=== PATIENT | female | born 1950 | race Caucasian/White ===

== ENCOUNTER → 2020-03-12 09:29 | Outpatient (REF) | payer OTHER, SELFPAY ==
[2020-03-12 09:38] LABS: Abs Immature Grans 0.03 10^3/uL (0.0-0.06); Absolute Basophil Count 0.06 10^3/uL (0.0-0.2); Absolute Lymphocyte Count 1.49 10^3/uL (1.2-3.4); Absolute Monocyte Count 0.44 10^3/uL (0.1-0.8); Absolute Neutrophil Count 4.19 10^3/uL (1.2-6.7); Basophils % 0.9; Eosinophils % 4.6; HCT 33.3 % (36.0-46.0); HGB 9.9 g/dL (11.2-15.7); Immature Grans % 0.5; Lymphocytes % 22.9; MCH 24.3 pg (27.0-33.0); MCHC 29.7 % (32.0-36.0); MCV 81.6 fL (80-95); MPV 9.7 fL (8.0-11.0); Monocytes % 6.8; Neutrophils % 64.3; Nucleated RBC 0 %; Platelet Count 294 10^3/uL (130-400); RBC 4.08 10^6/uL (3.93-5.22); RDW 17.9 % (11.7-14.6); WBC 6.51 10^3/uL (4.4-10.8)
[2020-03-12 09:46] LABS: ALT 26 U/L (14-59); AST 21 U/L (15-37); Albumin 3.4 g/dL (3.4-5.0); Alkaline Phosphatase 71 U/L (46-116); Anion Gap 11.4 mmol/L (3-11); BUN 16 mg/dL (7-18); Bilirubin, Total 0.3 mg/dL (0.2-1.0); CO2 23.6 mmol/L (21.0-32.0); CREATININE 0.91 mg/dL (0.55-1.02); Chloride 101 mmol/L (98-107); Glucose 115 mg/dL (74-106); Magnesium 1.9 mg/dL (1.8-2.4); Potassium 3.9 mmol/L (3.5-5.1); Sodium 136 mmol/L (136-145); Total Protein 7.5 g/dL (6.4-8.2)
== END ==
LOC: LBN 09:29
PROVIDERS: PCP Internal Medicine; Visit Provider Internal Medicine Medical Oncology
DX: C54.1 Malignant neoplasm of endometrium (principal)
CPT/HCPCS: 80053; 83735; 85025

== ENCOUNTER 2020-04-02 02:12 | Outpatient (RCR) | payer OTHER, SELFPAY ==
[2020-04-02] MEDS: Normal Saline Flush 10 ML SYR IVP (09:01)
[2020-04-02 09:04] LABS: Abs Immature Grans 0.13 10^3/uL (0.0-0.06); Absolute Basophil Count 0.02 10^3/uL (0.0-0.2); Absolute Lymphocyte Count 0.88 10^3/uL (1.2-3.4); Absolute Monocyte Count 0.46 10^3/uL (0.1-0.8); Absolute Neutrophil Count 7.05 10^3/uL (1.2-6.7); Basophils % 0.2; HGB 10.9 g/dL (11.2-15.7); Immature Grans % 1.5; Lymphocytes % 10.3; MCH 25.5 pg (27.0-33.0); MCHC 31.1 % (32.0-36.0); MCV 81.8 fL (80-95); MPV 9.1 fL (8.0-11.0); Monocytes % 5.4; Nucleated RBC 0 %; Platelet Count 268 10^3/uL (130-400); RBC 4.28 10^6/uL (3.93-5.22); RDW 20.5 % (11.7-14.6); WBC 8.54 10^3/uL (4.4-10.8)
[2020-04-02 09:15] LABS: ALT 34 U/L (14-59); AST 16 U/L (15-37); Albumin 3.7 g/dL (3.4-5.0); Alkaline Phosphatase 60 U/L (46-116); Anion Gap 9.3 mmol/L (3-11); BUN 26 mg/dL (7-18); Bilirubin, Total 0.3 mg/dL (0.2-1.0); CO2 24.7 mmol/L (21.0-32.0); CREATININE 0.95 mg/dL (0.55-1.02); Calcium 8.9 mg/dL (8.5-10.1); Chloride 99 mmol/L (98-107); Estimated GFR 58.68 (mL/min/1.73m2); Glucose 139 mg/dL (74-106); Magnesium 2.1 mg/dL (1.8-2.4); Potassium 4.5 mmol/L (3.5-5.1); Sodium 133 mmol/L (136-145)
[2020-04-02 09:32] LABS: Diff Comment Diff Reviewed; Neutrophils % 82.6
[2020-04-02 09:33] LABS: Anisocytosis 2+; Hypochromasia 1+; Polychromasia Present
== END 2020-04-05 23:59 | disposition home or self-care (01) ==
LOC: INF 02:12
PROVIDERS: PCP Internal Medicine; Visit Provider Internal Medicine Medical Oncology
DX: C54.1 Malignant neoplasm of endometrium (principal)
CPT/HCPCS: 36415; 80053; 83735; 85025

== ENCOUNTER 2020-04-23 01:57 | Outpatient (RCR) | payer OTHER, SELFPAY ==
[2020-04-23] MEDS: Normal Saline Flush 10 ML SYR IVP (08:18)
[2020-04-23 08:20] LABS: Abs Immature Grans 0.07 10^3/uL (0.0-0.06); Absolute Basophil Count 0.02 10^3/uL (0.0-0.2); Absolute Eosinophil Count 0.02 10^3/uL (0.0-0.7); Absolute Lymphocyte Count 1.82 10^3/uL (1.2-3.4); Absolute Monocyte Count 0.41 10^3/uL (0.1-0.8); Absolute Neutrophil Count 2.58 10^3/uL (1.2-6.7); Basophils % 0.4; Eosinophils % 0.4; HCT 34.3 % (36.0-46.0); Immature Grans % 1.4; MCH 27.2 pg (27.0-33.0); MCHC 32.1 % (32.0-36.0); MCV 84.9 fL (80-95); MPV 9.3 fL (8.0-11.0); Monocytes % 8.3; Neutrophils % 52.5; Nucleated RBC 0 %; Platelet Count 234 10^3/uL (130-400); RBC 4.04 10^6/uL (3.93-5.22); RDW-SD 71.5 fL; WBC 4.92 10^3/uL (4.4-10.8)
[2020-04-23 08:35] LABS: ALT 51 U/L (14-59); AST 21 U/L (15-37); Albumin 3.7 g/dL (3.4-5.0); Alkaline Phosphatase 56 U/L (46-116); Anion Gap 10.1 mmol/L (3-11); BUN 19 mg/dL (7-18); Bilirubin, Total 0.2 mg/dL (0.2-1.0); CO2 26.9 mmol/L (21.0-32.0); CREATININE 0.83 mg/dL (0.55-1.02); Calcium 9.4 mg/dL (8.5-10.1); Chloride 94 mmol/L (98-107); Glucose 104 mg/dL (74-106); Potassium 4.2 mmol/L (3.5-5.1); Sodium 131 mmol/L (136-145); Total Protein 7.4 g/dL (6.4-8.2)
== END 2020-05-06 23:59 | disposition home or self-care (01) ==
LOC: INF 01:57
PROVIDERS: PCP Internal Medicine; Visit Provider Internal Medicine Medical Oncology
DX: C54.1 Malignant neoplasm of endometrium (principal); Z45.2 Encounter for adjustment and management of vascular access device
CPT/HCPCS: 36415; 80053; 83735; 85025

== ENCOUNTER 2020-06-04 13:54 | Outpatient (REF) | payer OTHER, SELFPAY ==
--- OUTSIDE RECORDS SUMMARY | 2020-06-04 13:56 | XMS_ITS ---
:1950 Author Allergies Code Code System Name Reaction Severity Status Onset 1191 RxNorm Aspirin ? ? Active ? 28342 RxNorm Lisinopril Cough ? Active ? Tree and Shrub ? ? Active ? Pollen Notes: aspirin sensitive per p t packet Medications Name Status Start Date Stop Date ? ? Advil Active ? Not available albuterol sulfate 2.5 mg/3 mL (0.083 %) Active ? Not available solution for nebulization albuterol sulfate HFA 90 mcg/actuation Active ? Not available aerosol inhaler betamethasone dipropionate 0.05 % topical ointment Completed ? 12/09/2019 APPLY A THIN LAYER TO THE AFFECTED AREA(S) BY TOPICAL ROUTE ONC E DAILY codeine 10 mg-guaifenesin 100 mg/5 mL oral liquid Completed ? 12/09/2019 Take 10 mL every 4 hours by oral route as needed. Flonase Allergy Relief 50 mcg/actuation nasal spray,suspension A ctive ? Not available Zamora 1 spray every day by intranasal route. fluticasone 250 mcg-salmeterol 50 Active ? Not available mcg/dose blistr powdr for inhalation lisinopril 10 mg tablet Completed ? 11/06/19 19 Take 1 tablet every day by oral route. losartan 25 mg tablet Active ? Not availa ble Take 1 tablet every day by oral route. Mucinex Completed ? 12/09/2019 2 daily as needed Multi Vitamin Active ? Not available 1 daily prednisone 10 mg tablet Completed ? 12/09/19 20 Take 5 tablets every day by oral route for 5 days. prednisone 20 mg tablet Completed ? 12/09/19 20 Take 3 tablets every day by oral route. Tessalon Perles 100 mg capsule Completed ? 0 12/09/2019 Take 1 capsule 3 times a day by oral route as needed. Zithromax Z-Cory 250 mg tablet Completed ? TAKE 2 TABLETS (500 MG) BY ORAL ROUTE O NCE DAILY FOR 1 DAY THEN 1 TABLET (250 MG) BY ORAL ROUTE ONCE DAILY FOR 4 DAYS Problems Name Status Onset Date Source ? Hypertensive Disorder Active ? ? Exacerbation of Asthma Active ? ? Vaginal Bleeding Active ? ? Procedures Date Name Performed by ? 04/06/2009 Laparotomy Information not avai lable Notes: lysis of adhesions on her arnie l 04/06/2009 Colonoscopy Information not avai lable 04/06/1995 Appendectomy Information not avai lable 12/09/2019 US, Pelvis, Transabdominal + [facility] Radiology (Internal) Transvaginal [address] [place], [place] [id number] (Work Place) Results Lab Results Date Name Specimen Result Interpretation Description Value Range Status Address ? 12/09/2019 Pathology TISS ? Report (see ? Final No [facility]th Country Study below) Hospital L ab (Internal) : [address] 11/21/2018 CBC W/ Auto BLD - Wbc 7.9 5.0-1 Final N orth Country Diff 10*3/uL 0.0 Hospital Lab 10*3/ (Internal) : uL [address] ? ? BLD - Rbc 4.24 4.10- Final [place] [facility] try 10*6/uL 5.30 Hospital Lab 10*6/ (Internal) : uL [address] ? ? BLD - Hgb 13.1 g/dL 12.0- Final [facility] ountry 16.0 Hospital L ab g/dL (Internal) : [address] ? ? BLD - Hct 40.3 % 37.0- Final [place] [facility] try 47.0 Hospital L ab % (Internal) : [address] ? ? BLD - Mcv 95.0 fL 80.0- Final [facility] ntry 96.0 Hospital L ab fL (Internal) : [address] ? ? BLD - Mch 30.9 pg 26.0- Final [place] [facility] 32.0 Hospital L ab pg (Internal) : [address] ? ? BLD - Mchc 32.5 g/dL 31.0- Final [place] [facility]untry 35.0 Hospital L ab g/dL (Internal) : [address] ? ? BLD - Rdw 13.5 % 11.5- Final [place] [facility] try 14.5 Hospital L ab % (Internal) : [address] ? ? BLD - Plt 222 130-4 Final [place] [facility] try 10*3/uL 50 Hospital Lab 10*3/ (Internal) : u[address] ? ? BLD - Anc 5.24 ? Final [place] [facility] try 10*3/uL Hospital Lab (Internal) : [address] ? ? BLD - Neutro 66.2 % 40.0- Final [place] [facility] 75.0 Hospital L ab % (Internal) : [address], [place] ? ? BLD - Lymph 24.1 % 20.0- Final [place] [facility] try 50.0 Hospital L ab % (Internal) : [address] ? ? BLD - Converse 5.6 % 2.0-1 Final [place] [facility] try 0.0 % Hospital L ab (Internal) : [address] ? ? BLD - Eos 2.7 % 1.0-6 Final [place] [facility] try .0 % Hospital L ab (Internal) : [address] ? ? BLD - Baso 0.5 % 0.0-1 Final [place] [facility] try .0 % Hospital L ab (Internal) : [address] ? ? BLD - Ig 0.9 % 0.0-0 Final [place] [facility] try .9 % Hospital L ab (Internal) : [address] 11/21/2018 CMP, Serum S High g/r 114 mg/dL 74-10 Final [place] [facility] or Plasma 6 Hospita l Lab mg/dL (Internal) : [address] ? ? S - Bun 14 mg/dL 7-17 Final [place] [facility] mg/dL Hospital L ab (Internal) : [address] ? ? S Low Crea 0.50 0.52- Final [place] [facility] try mg/dL 1.04 Hospital L ab mg/dL (Internal) : [address] t ? ? S - Ca 9.3 mg/dL 8.4-1 Final [place] [facility]unt[facility] 0.2 Hospital L ab mg/dL (Internal) : [address] t ? ? S - Na 137 137-1 Final [facility] mmol/L 45 Hospital L ab mmol/ (Internal) : L [address] ? ? S - K 4.1 3.5-5 Final [facility] mmol/L .1 Hospital L ab mmol/ (Internal) : L [address] ? ? S - Cl 101 98-10 Final [place] [facility] try mmol/L 7 Hospital L ab mmol/ (Internal) : L [address] ? ? S - Tco2 28.0 22.0- Final [facility] mmol/L 30.0 Hospital L ab mmol/ (Internal) : L [address] ? ? S - Tp 7.3 g/dL 6.3-8 Final [place] [facility] .2 Hospital L ab g/dL (Internal) : [address] ? ? S - Alb 4.1 g/dL 3.5-5 Final [place] [facility] .0 Hospital L ab g/dL (Internal) : [address] ? ? S - Tbil 0.4 mg/dL 0.2-1 Final [facility] ountry .3 Hospital L ab mg/dL (Internal) : [address] ? ? S - Alp 74 U/L 38-12 Final [facility] 6 U/L Hospital L ab (Internal) : [address] ? ? S - Alt 52 U/L 9-52 Final [place] [facility] try (Sgpt) U/L Hospital L ab (Internal) : [address] ? ? S High Ast 39 U/L 14-36 Final [facility] (Sgot) U/L Hospital L ab (Internal) : [address] Past Encounters 12/19/2019 Endometrial Carcinoma Vinod Leon MD: [address] [place] [address], Ph. 12/09/2019 Abnormal Uterine Bleeding Vinod Leon MD: [address] [place] [address], Ph. Social History Tobacco Smoking Status Current Every Day Smoker Notes: sm okes 10 cigs per day x1 year. 2ppd 41 years. Vaccine List Vaccine Type pneumococcal, unspecified formulation 04/06/2014 Plan of Care Reminders Provider Appointments None ? ? recorded. Lab None ? ? recorded. Referral None ? ? recorded. Procedures None ? ? recorded. Surgeries None ? ? recorded. Imaging None ? ? recorded. Vitals 12/09/2019 03:10PM New Patient 30 Height Weight BMI Blood Pressure 165.1 cm 95.25 kg 34.9 kg/m2 148/82 mm[Hg] 10/22/2018 09:20AM New Patient 40 Height Weight BMI Blood Pressure 165.1 cm 102.42 kg 37.6 kg/m2 194/96 mm[Hg]
[2020-06-04 15:34] LABS: Bilirubin Negative (Negative); Blood Negative (Negative); Clarity Clear (Clear); Glucose Negative (Negative); Ketones Trace mg/dL (Negative); Leukocyte Esterase Small (Negative); Nitrite Positive (Negative); Specific Gravity 1.015 (1.005-1.025); Urobilinogen 0.2 EU/dL (Up TO 0.2)
[2020-06-04 15:48] LABS: Bacteria Many HPF (Negative); Casts Negative LPF (Negative); Crystals Negative HPF (Negative); Epithelial Cells Few HPF (Negative); Mucus Negative (Negative); Other Cells Negative (Negative); RBC Negative HPF (0-2); WBC >50 HPF (0-5)
[2020-06-04 15:49] LABS: C & S Indicated? Yes
== END 2020-06-04 13:55 | disposition home or self-care (01) ==
LOC: LBN 13:54
PROVIDERS: PCP Internal Medicine; Visit Provider Radiology Radiation Oncology
DX: R82.998 Other abnormal findings in urine (principal); M54.5 Low back pain
CPT/HCPCS: 87077; 81003; 81015; 87086; 87186

== ENCOUNTER 2020-06-21 02:00 | Outpatient (CLI) | payer OTHER, SELFPAY ==
--- NOTE | 2020-06-21 10:05 | DI.RAD_ITS ---
EXAM: XR CHEST 2V PA LATERAL CLINICAL HISTORY: PERSIST COUGH, ENDOMETRIAL CA,C54.1,R05,NEEDING INHALER. TECHNIQUE: 2D digital imaging was performed. COMPARISON: No exams were available for comparison FINDINGS: Heart size is normal. The mediastinum is not widened. No confluent infiltrates pleural effusions. Slight increased density over the right hemithorax may b e related to breast implant IMPRESSION: No acute pulmonary findings. DATA REPOSITORY: RADIATION DOSE DELIVERED:
[2020-06-21 10:27] LABS: Abs Immature Grans 0.09 10^3/uL (0.0-0.06); Absolute Basophil Count 0.04 10^3/uL (0.0-0.2); Absolute Eosinophil Count 0.02 10^3/uL (0.0-0.7); Absolute Lymphocyte Count 0.18 10^3/uL (1.2-3.4); Absolute Monocyte Count 0.46 10^3/uL (0.1-0.8); Absolute Neutrophil Count 5.19 10^3/uL (1.2-6.7); Basophils % 0.7; Eosinophils % 0.3; HCT 35.7 % (36.0-46.0); HGB 11.9 g/dL (11.2-15.7); Immature Grans % 1.5; MCH 32.3 pg (27.0-33.0); MCHC 33.3 % (32.0-36.0); MPV 10.2 fL (8.0-11.0); Monocytes % 7.7; Neutrophils % 86.8; Nucleated RBC 0 %; Platelet Count 123 10^3/uL (130-400); RBC 3.68 10^6/uL (3.93-5.22); RDW-SD 68.4 fL; WBC 5.98 10^3/uL (4.4-10.8)
[2020-06-21 10:42] LABS: ALT 51 U/L (14-59); AST 31 U/L (15-37); Albumin 3.3 g/dL (3.4-5.0); Alkaline Phosphatase 54 U/L (46-116); Anion Gap 9.7 mmol/L (3-11); BUN 7 mg/dL (7-18); Bilirubin, Total 0.4 mg/dL (0.2-1.0); CO2 27.3 mmol/L (21.0-32.0); CREATININE 0.8 mg/dL (0.55-1.02); Calcium 8.9 mg/dL (8.5-10.1); Chloride 93 mmol/L (98-107); Glucose 124 mg/dL (74-106); Magnesium 1.4 mg/dL (1.8-2.4); Potassium 4.4 mmol/L (3.5-5.1); Sodium 130 mmol/L (136-145); Total Protein 6.9 g/dL (6.4-8.2)
== END 2020-06-21 02:01 | disposition home or self-care (01) ==
PROVIDERS: PCP Internal Medicine; Visit Provider Internal Medicine Medical Oncology
DX: C54.1 Malignant neoplasm of endometrium (principal); R05 Cough
CPT/HCPCS: 36415; 80053; 71046; 83735; 85025

== ENCOUNTER 2020-07-05 09:28 | Outpatient (CLI) | payer OTHER, SELFPAY ==
[2020-07-05 10:34] LABS: Abs Immature Grans 0.05 10^3/uL (0.0-0.06); Absolute Basophil Count 0.01 10^3/uL (0.0-0.2); Absolute Eosinophil Count 0.01 10^3/uL (0.0-0.7); Absolute Lymphocyte Count 0.11 10^3/uL (1.2-3.4); Absolute Monocyte Count 0.34 10^3/uL (0.1-0.8); Basophils % 0.3; Eosinophils % 0.3; HCT 34.3 % (36.0-46.0); HGB 11.6 g/dL (11.2-15.7); Immature Grans % 1.4; MCH 33.6 pg (27.0-33.0); MCHC 33.8 % (32.0-36.0); MCV 99.4 fL (80-95); MPV 9.3 fL (8.0-11.0); Monocytes % 9.4; Neutrophils % 85.6; Nucleated RBC 0 %; Platelet Count 147 10^3/uL (130-400); RBC 3.45 10^6/uL (3.93-5.22); RDW 17.5 % (11.7-14.6); RDW-SD 64.8 fL; WBC 3.62 10^3/uL (4.4-10.8)
[2020-07-05 11:29] LABS: ALT 42 U/L (14-59); AST 24 U/L (15-37); Albumin 3.1 g/dL (3.4-5.0); Alkaline Phosphatase 57 U/L (46-116); Anion Gap 13.5 mmol/L (3-11); BUN 5 mg/dL (7-18); Bilirubin, Total 0.4 mg/dL (0.2-1.0); CO2 24.5 mmol/L (21.0-32.0); CREATININE 0.6 mg/dL (0.55-1.02); Calcium 8.9 mg/dL (8.5-10.1); Chloride 94 mmol/L (98-107); Glucose 98 mg/dL (74-106); Magnesium 1.3 mg/dL (1.8-2.4); Potassium 3.5 mmol/L (3.5-5.1); Sodium 132 mmol/L (136-145); Total Protein 6.4 g/dL (6.4-8.2)
== END 2020-07-05 09:29 | disposition home or self-care (01) ==
LOC: LBO 09:29
PROVIDERS: PCP Internal Medicine; Visit Provider Internal Medicine Medical Oncology
DX: C54.1 Malignant neoplasm of endometrium (principal)
CPT/HCPCS: 36415; 80053; 83735; 85025

== ENCOUNTER 2020-08-13 11:38 | Outpatient (CLI) | payer OTHER, SELFPAY ==
[2020-08-13 12:27] LABS: Abs Immature Grans 0.03 10^3/uL (0.0-0.06); Absolute Basophil Count 0.01 10^3/uL (0.0-0.2); Absolute Eosinophil Count 0.08 10^3/uL (0.0-0.7); Absolute Lymphocyte Count 0.37 10^3/uL (1.2-3.4); Absolute Monocyte Count 0.33 10^3/uL (0.1-0.8); Absolute Neutrophil Count 3.97 10^3/uL (1.2-6.7); Basophils % 0.2; Eosinophils % 1.7; HCT 34.5 % (36.0-46.0); HGB 11.4 g/dL (11.2-15.7); Immature Grans % 0.6; Lymphocytes % 7.7; MCH 33.6 pg (27.0-33.0); MCV 101.8 fL (80-95); MPV 9.1 fL (8.0-11.0); Monocytes % 6.9; Neutrophils % 82.9; Nucleated RBC 0 %; Platelet Count 220 10^3/uL (130-400); RBC 3.39 10^6/uL (3.93-5.22); RDW 14.6 % (11.7-14.6); RDW-SD 55.4 fL; WBC 4.79 10^3/uL (4.4-10.8)
[2020-08-13 12:40] LABS: ALT 39 U/L (14-59); AST 34 U/L (15-37); Albumin 2.9 g/dL (3.4-5.0); Alkaline Phosphatase 57 U/L (46-116); Anion Gap 10.3 mmol/L (3-11); BUN 22 mg/dL (7-18); Bilirubin, Total 0.2 mg/dL (0.2-1.0); CO2 27.7 mmol/L (21.0-32.0); CREATININE 0.9 mg/dL (0.55-1.02); Calcium 8.1 mg/dL (8.5-10.1); Chloride 103 mmol/L (98-107); Glucose 105 mg/dL (74-106); Magnesium 1.3 mg/dL (1.8-2.4); Potassium 3.4 mmol/L (3.5-5.1); Sodium 141 mmol/L (136-145); Total Protein 6.3 g/dL (6.4-8.2)
== END 2020-08-13 11:39 | disposition home or self-care (01) ==
LOC: LBO 11:39
PROVIDERS: PCP Internal Medicine; Visit Provider Internal Medicine Medical Oncology
DX: C54.1 Malignant neoplasm of endometrium (principal)
CPT/HCPCS: 36415; 80053; 83735; 85025

== ENCOUNTER 2020-10-01 02:48 | Outpatient (RCR) | payer OTHER, SELFPAY ==
[2020-09-10 10:13] LABS: Absolute Basophil Count 0.05 10^3/uL (0.0-0.2); Absolute Eosinophil Count 0.08 10^3/uL (0.0-0.7); Absolute Lymphocyte Count 0.44 10^3/uL (1.2-3.4); Absolute Monocyte Count 0.45 10^3/uL (0.1-0.8); Absolute Neutrophil Count 5.76 10^3/uL (1.2-6.7); Basophils % 0.7; Eosinophils % 1.2; HCT 34.3 % (36.0-46.0); HGB 11.5 g/dL (11.2-15.7); Immature Grans % 1.5; Lymphocytes % 6.4; MCH 34.6 pg (27.0-33.0); MCHC 33.5 % (32.0-36.0); MCV 103.3 fL (80-95); MPV 9.4 fL (8.0-11.0); Monocytes % 6.5; Neutrophils % 83.7; Nucleated RBC 0 %; Platelet Count 215 10^3/uL (130-400); RBC 3.32 10^6/uL (3.93-5.22); RDW 15.6 % (11.7-14.6); RDW-SD 58.8 fL; WBC 6.88 10^3/uL (4.4-10.8)
[2020-09-10] MEDS: Normal Saline Flush 10 ML SYR IVP (10:14)
[2020-09-10 10:27] LABS: ALT 34 U/L (14-59); AST 21 U/L (15-37); Albumin 3.3 g/dL (3.4-5.0); Alkaline Phosphatase 67 U/L (46-116); Anion Gap 10.2 mmol/L (3-11); BUN 14 mg/dL (7-18); Bilirubin, Total 0.4 mg/dL (0.2-1.0); CO2 27.8 mmol/L (21.0-32.0); CREATININE 0.9 mg/dL (0.55-1.02); Calcium 8.7 mg/dL (8.5-10.1); Chloride 102 mmol/L (98-107); Glucose 110 mg/dL (74-106); Magnesium 1.9 mg/dL (1.8-2.4); Potassium 4.4 mmol/L (3.5-5.1); Sodium 140 mmol/L (136-145); Total Protein 6.8 g/dL (6.4-8.2)
[2020-09-10 12:13] LABS: Folate 5.1 ng/mL (8.6-20.0); Vitamin B12 178 pg/mL (193-986)
[2020-10-01 10:53] LABS: Abs Immature Grans 0.05 10^3/uL (0.0-0.06); Absolute Basophil Count 0.02 10^3/uL (0.0-0.2); Absolute Eosinophil Count 0.01 10^3/uL (0.0-0.7); Absolute Lymphocyte Count 0.44 10^3/uL (1.2-3.4); Absolute Monocyte Count 0.29 10^3/uL (0.1-0.8); Absolute Neutrophil Count 5.16 10^3/uL (1.2-6.7); Basophils % 0.3; Eosinophils % 0.2; HCT 31.9 % (36.0-46.0); HGB 10.6 g/dL (11.2-15.7); Immature Grans % 0.8; Lymphocytes % 7.4; MCH 35.6 pg (27.0-33.0); MCHC 33.2 % (32.0-36.0); MPV 9.2 fL (8.0-11.0); Monocytes % 4.9; Neutrophils % 86.4; Nucleated RBC 0 %; RBC 2.98 10^6/uL (3.93-5.22); RDW 16.1 % (11.7-14.6); RDW-SD 63.7 fL; WBC 5.97 10^3/uL (4.4-10.8)
[2020-10-01] MEDS: Normal Saline Flush 10 ML SYR IVP (10:59)
[2020-10-01 11:14] LABS: Diff Comment RBC Morph Reviewed; Macrocytosis 2+; Platelet Count 109 10^3/uL (130-400)
[2020-10-01 11:29] LABS: ALT 50 U/L (14-59); AST 19 U/L (15-37); Albumin 3.4 g/dL (3.4-5.0); Alkaline Phosphatase 53 U/L (46-116); Anion Gap 10.4 mmol/L (3-11); BUN 23 mg/dL (7-18); Bilirubin, Total 0.4 mg/dL (0.2-1.0); CO2 26.6 mmol/L (21.0-32.0); CREATININE 0.9 mg/dL (0.55-1.02); Calcium 8.9 mg/dL (8.5-10.1); Chloride 100 mmol/L (98-107); Glucose 100 mg/dL (74-106); Magnesium 1.9 mg/dL (1.8-2.4); Potassium 4.1 mmol/L (3.5-5.1); Sodium 137 mmol/L (136-145)
== END 2020-10-03 23:59 | disposition home or self-care (01) ==
LOC: INF 02:48
PROVIDERS: PCP Internal Medicine; Visit Provider Internal Medicine Medical Oncology
DX: C54.1 Malignant neoplasm of endometrium (principal); D53.9 Nutritional anemia, unspecified; R60.0 Localized edema
CPT/HCPCS: 36415; 80053; 82607; 82746; 83735; 85025

== ENCOUNTER 2020-10-29 01:37 | Outpatient (RCR) | payer OTHER, SELFPAY ==
[2020-10-22] MEDS: Normal Saline Flush 10 ML SYR IVP (10:34)
[2020-10-22 10:36] LABS: Abs Immature Grans 0.02 10^3/uL (0.0-0.06); Absolute Basophil Count 0.02 10^3/uL (0.0-0.2); Absolute Eosinophil Count 0.01 10^3/uL (0.0-0.7); Absolute Lymphocyte Count 0.37 10^3/uL (1.2-3.4); Absolute Monocyte Count 0.16 10^3/uL (0.1-0.8); Absolute Neutrophil Count 3.05 10^3/uL (1.2-6.7); Basophils % 0.6; Eosinophils % 0.3; HCT 29.5 % (36.0-46.0); Immature Grans % 0.6; Lymphocytes % 10.2; MCHC 33.9 % (32.0-36.0); MCV 106.1 fL (80-95); MPV 10.2 fL (8.0-11.0); Monocytes % 4.4; Neutrophils % 83.9; Nucleated RBC 1 %; Platelet Count 61 10^3/uL (130-400); RBC 2.78 10^6/uL (3.93-5.22); RDW 15.3 % (11.7-14.6); RDW-SD 59.1 fL; WBC 3.63 10^3/uL (4.4-10.8)
[2020-10-22 10:58] LABS: ALT 36 U/L (14-59); AST 12 U/L (15-37); Alkaline Phosphatase 65 U/L (46-116); Anion Gap 6.8 mmol/L (3-11); BUN 9 mg/dL (7-18); Bilirubin, Total 0.4 mg/dL (0.2-1.0); CO2 28.2 mmol/L (21.0-32.0); CREATININE 0.7 mg/dL (0.55-1.02); Calcium 8.4 mg/dL (8.5-10.1); Chloride 101 mmol/L (98-107); Diff Comment RBC Morph Reviewed; Glucose 130 mg/dL (74-106); Magnesium 1.6 mg/dL (1.8-2.4); Potassium 4.1 mmol/L (3.5-5.1); Sodium 136 mmol/L (136-145); Total Protein 6.5 g/dL (6.4-8.2)
[2020-10-22 10:59] LABS: Anisocytosis 1+; Macrocytosis 2+
== END 2020-11-03 23:59 | disposition home or self-care (01) ==
LOC: INF 01:37
PROVIDERS: PCP Internal Medicine; Visit Provider Internal Medicine Medical Oncology
DX: C54.1 Malignant neoplasm of endometrium (principal)
CPT/HCPCS: 36415; 80053; 83735; 85025

== ENCOUNTER 2020-11-12 03:07 | Outpatient (RCR) | payer OTHER, SELFPAY ==
[2020-11-12] MEDS: Normal Saline Flush 10 ML SYR IVP (10:29)
[2020-11-12 10:32] LABS: Abs Immature Grans 0.12 10^3/uL (0.0-0.06); Absolute Basophil Count 0.02 10^3/uL (0.0-0.2); Absolute Eosinophil Count 0.01 10^3/uL (0.0-0.7); Absolute Lymphocyte Count 0.27 10^3/uL (1.2-3.4); Absolute Neutrophil Count 3.61 10^3/uL (1.2-6.7); Basophils % 0.5; Eosinophils % 0.2; HCT 30.9 % (36.0-46.0); HGB 10.4 g/dL (11.2-15.7); Immature Grans % 2.7; Lymphocytes % 6.1; MCH 35.9 pg (27.0-33.0); MCHC 33.7 % (32.0-36.0); MCV 106.6 fL (80-95); MPV 9.2 fL (8.0-11.0); Neutrophils % 81.5; Nucleated RBC 0 %; Platelet Count 282 10^3/uL (130-400); RDW 15.3 % (11.7-14.6); RDW-SD 59.6 fL; WBC 4.43 10^3/uL (4.4-10.8)
[2020-11-12 10:46] LABS: ALT 28 U/L (14-59); AST 15 U/L (15-37); Albumin 2.9 g/dL (3.4-5.0); Alkaline Phosphatase 62 U/L (46-116); Anion Gap 8.8 mmol/L (3-11); BUN 11 mg/dL (7-18); Bilirubin, Total 0.2 mg/dL (0.2-1.0); CO2 26.2 mmol/L (21.0-32.0); CREATININE 0.7 mg/dL (0.55-1.02); Calcium 8.7 mg/dL (8.5-10.1); Chloride 97 mmol/L (98-107); Glucose 116 mg/dL (74-106); Magnesium 1.5 mg/dL (1.8-2.4); Potassium 3.2 mmol/L (3.5-5.1); Sodium 132 mmol/L (136-145); Total Protein 6.5 g/dL (6.4-8.2)
== END 2020-12-04 23:59 | disposition home or self-care (01) ==
LOC: INF 03:07
PROVIDERS: PCP Internal Medicine; Visit Provider Internal Medicine Medical Oncology
DX: C54.1 Malignant neoplasm of endometrium (principal)
CPT/HCPCS: 36415; 80053; 83735; 85025

== ENCOUNTER 2022-10-17 11:54 | Day surgery (SDC) | payer MEDICARE, SELFPAY ==
[2022-10-17 12:55] VITALS: BP 121/77; PULSE 73; RESP 16; TEMP 36.8; O2SAT 95
[2022-10-17] MEDS: Tropicam./Phenyleph. (1/2.5%) 5 ML BTL OD ×3 (13:06→13:16)
--- NOTE | 2022-10-17 13:07 | W.ANESPRE ---
General Info Date of Service Date Performed: 10/17/22 Height: 5 ft 6 in Weight: 75.75 kg Body Mass Index (BMI): 26.9 Surgical Procedure: Operation Date: 10/17/22 14:25 Proposed Procedure Side Surgeon p Cataract Extraction with IOL Implant Right Virgilio Chavez MD Meds Allergies and Home Medications Allergies Allergy/AdvReac Type Severity Reaction Status Date / Time aspirin Allergy Verified 10/15/22 14:56 lisinopril Allergy Verified 10/15/22 14:56 povidone-iodine Allergy Verified 10/15/22 14:56 [From Betadine] soap [From Betadine] Allergy Verified 10/15/22 14:56 Home Medication Medication Instructions Recorded acetaminophen 325 mg capsule 325 mg PO Q6H PRN 06/12/20 albuterol sulfate 90 mcg/actuation 2 puff inhalation Q4H PRN 06/12/20 aerosol inhaler diphenhydramine HCl 25 mg capsule 25 mg PO TID PRN 06/12/20 (Allergy (diphenhydramine)) fluticasone propionate 230 1 puff inhalation BID 06/12/20 mcg-salmeterol 21 mcg/actuation HFA inhaler ibuprofen 600 mg tablet 600 mg PO Q6H PRN 06/12/20 urbvundfr-pkzrxweg-zn-mag-sim PO TID 06/12/20 lorazepam 0.5 mg tablet 0.5 mg PO Q6H PRN 06/12/20 melatonin 5 mg tablet 20 mg PO HS PRN 06/12/20 omeprazole 20 mg capsule,delayed 20 mg PO BID 06/12/20 release polyethylene glycol 3350 17 17 g PO DAILY 06/12/20 gram/dose oral powder prochlorperazine maleate 10 mg 10 mg PO Q6H PRN 06/12/20 tablet sennosides 8.6 mg-docusate sodium 2 tab-cap PO BID 06/12/20 50 mg tablet (Senna with Docusate Sodium) albuterol sulfate 1.25 mg/3 mL 1.25 mg inhalation TID PRN 10/15/22 solution for nebulization collagenase clostridium histo. 250 1 applic topical DAILY 10/15/22 unit/gram topical ointment (Santyl) diphenoxylate-atropine 2.5 1 tab PO TID PRN 10/15/22 mg-0.025 mg tablet (Lomotil) gabapentin 600 mg tablet 600 mg PO TID 10/15/22 metoprolol succinate 25 mg 50 mg PO DAILY 10/15/22 tablet,extended release 24 hr oxycodone 10 mg tablet 10 mg PO TID 10/15/22 Current Visit Medications: Current Medications Generic Name Dose Route Start Last Admin Trade Name Freq PRN Reason Stop Dose Admin Acetaminophen 1,000 mg 10/17/22 06:00 Acetaminophen 500 Mg Tab PO 11/16/22 05:59 Q4H PRN PRN Balanced Salt Solution 500 ml 10/17/22 06:00 Balanced Salt Soln.-Plus 500 Ml Bag OP 11/16/22 05:59 DIRECTED KELLEE Miscellaneous Medication 0 ml 10/17/22 06:00 Prednisolone 1%, Moxifloxacin 0.5%, Nepafenac 0.1% 5ml Btl OD 11/16/22 05:59 DIRECTED KELLEE Miscellaneous Medication 0 ml 10/17/22 06:00 10/17/22 13:06 Tropicam./Phenyleph. (1/2.5%) 5 Ml Btl OD 11/16/22 05:59 1 drp DIRECTED KELLEE Administration Tetracaine HCl 0 ml 10/17/22 06:00 Tetracaine 0.5% 4 Ml Btl OD 11/16/22 05:59 DIRECTED KELLEE PFSH Active Problems Active Problems: Problem Status Onset Code Posterior subcapsular age-related cataract, right eye H25.041 Nuclear age-related cataract, right eye H25.11 Hypertension I10 FIGO stage II endometrial cancer C54.1 Obesity E66.9 GERD (gastroesophageal reflux disease) K21.9 Medical History Medical History Acute asthma Acute urinary tract infection Chronic pain Closed fracture of sacrum Cobalamin deficiency Diarrhea Dysphagia Edema of lower extremity Endometrial carcinoma Malignant neoplasm of endometrium of corpus uteri Neuropathy Thyroid nodule Vaginal bleeding Surgical History Surgical History Abdominal adhesions History of appendectomy 1987 History of dental surgery History of hysterectomy 01/03/20 laparoscopic Hx of cholecystectomy Tobacco Smoking/Tobacco Use Status: Current every day Tobacco Type: cigarettes Alcohol Alcohol Intake: current Alcohol intake frequency: a few times a week Alcohol type: wine Substance Use Substance use: Never Substance use type: does not use Vital Signs and Lab Results Lab Results Blood Type / Crossmatch: No Data to Display Complete Blood Count: No Data to Display Complete Metabolic Panel: No Data to Display Liver Function Panel: No Data to Display Coagulation Panel: No Data to Display Cardiac Panel: No Data to Display Arterial Blood Gas: No Data to Display Venous Blood Gas: No Data to Display Pancreas Panel: No Data to Display Thyroid Panel: No Data to Display Infectious Disease: No Data to Display Blood Cultures: No Data to Display Toxicology Panel: No Data to Display Anesthesia Assessment and Plan Anesthesia History Personal History: No History of Anesthesia Complications Family History: No Family History of Anesthesia Complications Exercise Tolerance Exercise Tolerance: Metabolic Equivalents>4 Pertinent Negatives Pertinent Negatives: No Symptoms of GERD Cardiac & Pulmonary Exam Cardiac Exam: Normal S1/S2 Heart Sounds Pulmonary Exam: Clear Bilateral Breath Sounds (decreased in bases) and Seasonal Allergies Implantable Cardiac Device Does patient have a Pacemaker or an ICD?: No Airway Exam Known Difficult Airway: No Mallampati Class: 2 Mouth Opening: Narrow (< 3cm) Thyromental Distance: Greater than 3 cm Neck Range of Motion: Full ROM Neck Circumference: Normal Teeth Condition: Normal Dentition ASA Classification ASA Score: ASA 2 Emergency Case?: No NPO Status NPO Status: NPO Clears >2 hours, Solids >8 hours Anesthesia Plan Resuscitation Status: Full Code Anesthesia Technique: MAC Anesthesia Airway Planned: Natural Airway Monitors Used: Standard Monitors
[2022-10-17 13:08] VITALS: BMI 26.9
[2022-10-17] MEDS: Povidone-Iodine Ophth 30 ML BTL ×2 (14:02→14:17)
[2022-10-17] MEDS: Lidocaine 1% Pres-Free 5 ML VIAL (14:03)
[2022-10-17] MEDS: Tetracaine 0.5% 4 ML BTL OD (14:03)
[2022-10-17] MEDS: Balanced Salt Soln.-PLUS 500 ML BAG OP (14:04)
[2022-10-17] MEDS: Duovisc Viscoelastic System EACH 1 EACH (14:05)
[2022-10-17] MEDS: Phenylephrine/Lidocaine (15/10) MG/ML 1 ML VIAL (14:05)
[2022-10-17 14:23] VITALS: BP 130/78; PULSE 72; RESP 18; TEMP 36.5; O2SAT 97
--- NOTE | 2022-10-17 14:24 | W.PM.DSUDISC ---
Date of service: 10/17/22 Time of Service: 14:24 Discharge Plan Disposition Patient Disposition: Home Discharge Details Attending Provider: Virgilio Chavez Primary Care Provider: Lucian Pleitez Home Meds and New Rx's Prescriptions: No Action acetaminophen 325 mg capsule 325 mg PO Q6H PRN albuterol sulfate 90 mcg/actuation HFA aerosol inhaler 2 puff inhalation Q4H PRN diphenhydramine HCl [Allergy (diphenhydramine)] 25 mg capsule 25 mg PO TID PRN fluticasone propion-salmeterol 230-21 mcg/actuation HFA aerosol inhaler 1 puff inhalation BID ibuprofen 600 mg tablet 600 mg PO Q6H PRN apxieaeue-rpmjnrqp-ei-mag-sim liquid PO TID Patient Comments: take 5 mls TID lorazepam 0.5 mg tablet 0.5 mg PO Q6H PRN melatonin 5 mg tablet 20 mg PO HS PRN omeprazole 20 mg capsule,delayed release(DR/EC) 20 mg PO BID polyethylene glycol 3350 17 gram/dose powder 17 g PO DAILY prochlorperazine maleate 10 mg tablet 10 mg PO Q6H PRN sennosides-docusate sodium [Senna with Docusate Sodium] 8.6-50 mg tablet 2 tab-cap PO BID gabapentin 600 mg Tablet 600 mg PO TID albuterol sulfate 1.25 mg/3 mL Solution For Nebulization 1.25 mg inhalation TID PRN diphenoxylate-atropine [Lomotil] 2.5-0.025 mg Tablet 1 tab PO TID PRN metoprolol succinate 25 mg Tablet Extended Release 24 Hr 50 mg PO DAILY Santyl 250 unit/gram Ointment 1 applic TOPICAL DAILY oxycodone 10 mg Tablet 10 mg PO TID Discharge Instructions Stand Alone Forms: Post-op Topical Cataract, Jony Strange (DSU) Discharge Orders Discharge Orders: Discharge Order (Routine); Ordered 10/17/22 Ordered By: Virgilio Chavez DS: Diagnosis Discharge Diagnosis (1) Posterior subcapsular age-related cataract, right eye: Status: Resolved (2) Nuclear age-related cataract, right eye: Status: Resolved
--- NOTE | 2022-10-17 14:24 | W.PM.OP ---
Date of service: 10/17/22 Time of Service: 14:25 Operative Note Operative Note DATE OF PROCEDURE: 10/17/22 PRE-OP DIAGNOSIS: Nuclear/posterior subcapsular cataract, right eye POST-OP DIAGNOSIS: same PROCEDURE: Cataract extraction using phacoemulsification with intraocular lens implant, right eye SURGEON: Virgilio Chavez ANESTHESIA TYPE: Local By Surgeon and MAC Refer to Anesthesia Record ESTIMATED BLOOD LOSS: 0 PATHOLOGY: none sent COMPLICATIONS: None Patient was transported to: same day Patient's condition: stable Implants: Bravo Clareon [id number] Indications: Progressive decreased vision due to cataract, right eye Procedure Description: CATARACT SURGERY OPERATIVE REPORT PREOPERATIVE DIAGNOSIS: Nuclear/posterior subcapsular cataract, right eye POSTOPERATIVE DIAGNOSIS: Same OPERATION: Cataract extraction using phacoemulsification with posterior chamber intraocular lens implant, right eye. IOL: IOL Automatic Nailing Machine Operator/Model: Bravo Clareon [id number] IOL Power: + 20.5 diopters IOL Serial Number: [id number] Optic Diameter: 6.0mm Haptic/Overall Diameter: 13.0mm PHACO INFO: Bravo 24/7 Cardurion Vision System with OZil and Active Fluidics Cumulative Dispersed Energy (CDE): 19.47 seconds SURGEON: Virgilio Chavez MD, ALAINA ANESTHESIA: Monitored Anesthesia Care (MAC), with local sub-tenon's anesthetic infiltration COMPLICATIONS: None SPECIMENS: None INDICATIONS FOR PROCEDURE: The patient is a 72-year-old lady with history of diminished visual acuity in her right eye secondary to the development of nuclear/posterior subcapsular cataract. She is significantly symptomatic that she desires cataract surgery and attempt to improve and maximize her vision. The option of cataract surgery was offered to the patient and she wished to proceed. See office notes for detailed information. PROCEDURE: The correct surgical eye was identified and marked as the right eye and the pupil was dilated in the preoperative area using mydriatics and cycloplegics. The dilated pupil size was 6.5 mm. Oral sedation was administered in the form of an Imprimis MKO Melt (midazolam 3mg/ketamine 25mg/ondansetron 2mg). The patient was brought to the operating room where cardiopulmonary monitoring was instituted and surgical time-out was performed, confirming the correct operative eye and IOL power. Topical anesthesia was administered and ophthalmic povidone-iodine 5% was instilled into the conjunctival fornices. The nimco-ocular area was prepped with Betadine 10% solution and draped in the usual sterile fashion for intraocular surgery, including an aperture drape. A Tegaderm transparent film dressing was cut in half and used to cover the lashes and lid margins. Care was taken to sequester the lashes and lid margins under the Tegaderm dressing. A lid speculum was placed between the lids of the operative eye and the Corinne-Marcial operating microscope was maneuvered into position. Brennan scissors were then used to make a conjunctival buttonhole approximately 6mm posterior to the limbus in the inferonasal quadrant. Blunt dissection was carried out to expose bare sclera, and a blunt-tipped sub-tenon?s anesthesia cannula was introduced and passed posteriorly along the globe where non-preserved plain lidocaine was injected into posterior sub-Tenon?s space. A sideport knife was used to make a paracentesis port. Intraocular phenylephrine/lidocaine was injected into the anterior chamber. The anterior chamber was then filled with viscoelastic. A keratome knife was used to construct a two--plane clear corneal tunnel extending 2.0mm into clear cornea. A flap was raised on the anterior capsule and capsulorhexis forceps were used to complete a continuous curvilinear capsulorhexis of 5.5 mm. Balanced salt solution was then used to perform cortical cleaving hydrodissection and nuclear hydrodelineation until the lens could be freely rotated within the capsular bag. The lens nucleus was then disassembled and removed within the capsular bag and iris plane using phacoemulsification. Residual cortical material was removed using the I/A handpiece. The posterior capsule was carefully polished to remove as much residual lens epithelial cells as safely possible. The capsular bag was then inflated and the anterior chamber deepened with cohesive viscoelastic. The lens implant described above was inserted into the capsular bag using the Bravo Autonome Injector. A Kuglen hook was used to dial the IOL into position. Residual viscoelastic was then removed first from posterior to the IOL, then from the anterior chamber using the I/A handpiece. The lens implant was noted to center nicely within the capsular bag. The incisions were stromally hydrated, and the anterior chamber was reformed using BSS. Then 0.5cc of moxifloxacin 1.0mg/ml were injected into the capsular bag and anterior chamber. The incisions were checked with a Weck spear and found to be secure. Several drops of ophthalmic povidone-iodine 5% were then applied to the eye followed by two drops of Imprimis combination prednisolone/moxifloxacin/nepafenac solution. The drapes were removed and a clear plastic protective eye shield was placed over the eye. The patient was then returned to Same Day Surgery in stable condition.
[2022-10-17 14:46] VITALS: BP 138/64; PULSE 71; RESP 18; TEMP 36.6; O2SAT 95
--- NOTE | 2022-10-17 14:50 | W.ANESPOSTOP ---
Postoperative Evaluation Date, Time and Location Date Performed: 10/17/22 Time Performed: 14:50 Patient Location: Day Surgery Unit Vital Signs Most Recent Imported Vital Signs: Most Recent Vital Signs Temp Pulse Resp BP Pulse Ox 36.6 C 71 18 138/64 95 10/17/22 14:46 10/17/22 14:46 10/17/22 14:46 10/17/22 14:46 10/17/22 14:46 Pain Score Most Recent Pain Score: Most Recent Pain Score Pain Level 0 10/17/22 14:46 Assessment Mental Status: Awake (Alert & Oriented to Patient Baseline) Airway and Respiratory Function: Patent airway with normal (patient baseline) respiratory exam Cardiovascular Function: Hemodynamically Stable Hydration Status: Adequately Hydrated Nausea & Vomiting: No Nausea or Vomiting Pain: Pt. Denies Any Pain Peripheral Nerve Block: Patient did not receive a nerve block
== END 2022-10-17 14:57 | disposition home or self-care (01) ==
LOC: SUR 11:55
PROVIDERS: PCP Family Medicine; Visit Provider Ophthalmology
PROC: (CPT 66984; principal; 2022-10-17 14:15)
DX: H25.041 Posterior subcapsular polar age-related cataract, right eye (principal); H25.11 Age-related nuclear cataract, right eye; R13.10 Dysphagia, unspecified; K21.9 Gastro-esophageal reflux disease without esophagitis; I10 Essential (primary) hypertension; E66.9 Obesity, unspecified
CPT/HCPCS: 66984; V2632

== ENCOUNTER 2022-10-31 08:59 | Day surgery (SDC) | payer MEDICARE, SELFPAY ==
--- NOTE | 2022-10-31 06:52 | W.PREOPHP ---
Assessment and Plan Assessment and plan (1) Nuclear age-related cataract, left eye: Status: Acute Assessment and plan: Assessment: Visually significant cataract of the left eye. Plan: Cataract extraction with lens implantation of the left eye. (2) Posterior subcapsular age-related cataract of left eye: Status: Acute Assessment and plan: Assessment: Visually significant cataract of the left eye. Plan: Cataract extraction with lens implantation of the left eye History of Present Illness History of Present Illness Chief Complaint: Progressive decreased vision, left eye Narrative: Patient is a 72-year-old lady with history of progressive decreased vision in both eyes secondary to the development of bilateral nuclear and posterior subcapsular cataract. She underwent cataract surgery in the right eye on 10/17/2022, and is doing well postoperatively. She now presents for cataract surgery in the left eye. Review of Systems All systems reviewed & are unremarkable except as noted in HPI and below PFSH All Active Problems Posterior subcapsular age-related cataract of left eye (Acute) Nuclear age-related cataract, left eye (Acute) Hypertension (Chronic) FIGO stage II endometrial cancer (Acute) Obesity (Chronic) GERD (gastroesophageal reflux disease) (Chronic) Medical History Acute asthma Acute urinary tract infection Chronic pain Closed fracture of sacrum Cobalamin deficiency Diarrhea Dysphagia Edema of lower extremity Endometrial carcinoma Malignant neoplasm of endometrium of corpus uteri Neuropathy Thyroid nodule Vaginal bleeding Surgical History Abdominal adhesions History of appendectomy 1986 History of dental surgery History of hysterectomy 01/03/20 laparoscopic Hx of cholecystectomy Family History Mother Leukemia Father , 69 Colon cancer Anemia Sister Diabetes Brother Esophageal cancer Pancreatic cancer Maternal Aunt Breast cancer Paternal Grandfather Throat cancer Paternal Grandmother Breast cancer Social History Smoking/Tobacco Use Status: Current every day Tobacco Type: cigarettes Tobacco: How many years used: 39 Smoking risk assessment performed?: Yes Alcohol Intake: current Alcohol Intake frequency: a few times a week Alcohol type: wine Drug use: Never Substance use type: does not use Housing: house current occupation: Honing Machine Operator Pets and animals: Yes (Yoshi) Pets and animals: dog(s) Do you feel safe at home: Yes Do you feel safe in your relationship?: Yes Meds Allergies and Home Medications Allergies Allergy/AdvReac Type Severity Reaction Status Date / Time aspirin Allergy Verified 10/31/22 09:07 lisinopril Allergy Verified 10/31/22 09:07 povidone-iodine Allergy Verified 10/31/22 09:07 [From Betadine] soap [From Betadine] Allergy Verified 10/31/22 09:07 Home Medications Medication Instructions Recorded Confirmed Type acetaminophen 325 mg capsule 325 mg PO Q6H PRN 06/12/20 10/31/22 History albuterol sulfate 90 mcg/actuation 2 puff inhalation Q4H PRN 06/12/20 10/31/22 History aerosol inhaler diphenhydramine HCl 25 mg capsule 25 mg PO TID PRN 06/12/20 10/31/22 History (Allergy (diphenhydramine)) fluticasone propionate 230 1 puff inhalation BID 06/12/20 10/31/22 History mcg-salmeterol 21 mcg/actuation HFA inhaler ibuprofen 600 mg tablet 600 mg PO Q6H PRN 06/12/20 10/31/22 History lorazepam 0.5 mg tablet 0.5 mg PO Q6H PRN 06/12/20 10/31/22 History melatonin 5 mg tablet 20 mg PO HS PRN 06/12/20 10/31/22 History omeprazole 20 mg capsule,delayed 20 mg PO BID 06/12/20 10/31/22 History release albuterol sulfate 1.25 mg/3 mL 1.25 mg inhalation TID PRN 10/15/22 10/31/22 History solution for nebulization diphenoxylate-atropine 2.5 1 tab PO TID PRN 10/15/22 10/31/22 History mg-0.025 mg tablet (Lomotil) gabapentin 600 mg tablet 600 mg PO TID 10/15/22 10/31/22 History metoprolol succinate 25 mg 50 mg PO DAILY 10/15/22 10/31/22 History tablet,extended release 24 hr oxycodone 10 mg tablet 10 mg PO TID 10/15/22 10/31/22 History Exam Eyes Other: Most recent ocular examination is significant for uncorrected visual acuity of 20/40 in the right eye. Uncorrected visual acuity is 20/70 in the left eye. Extraocular motility is normal. Intraocular pressure is 14 OU. Slit-lamp exam is significant for pupils dilating to 6 mm OU. There is a well-positioned PCIOL OD with clear posterior capsule. In the left eye there is a significant nuclear and posterior subcapsular cataract. Funduscopic examination is significant for disc cupping of 0.3 OU. Soft drusen are noted in both maculas with a drusen annoyed pigment epithelial detachment, left eye greater than right. Resp Auscultation: clear to auscultation bilaterally Cardio Rate: regular rate Rhythm: regular rhythm
[2022-10-31 09:21] VITALS: BP 141/53; PULSE 74; RESP 16; TEMP 36.5; O2SAT 95
[2022-10-31] MEDS: Tropicam./Phenyleph. (1/2.5%) 5 ML BTL OS ×3 (09:28→09:41)
[2022-10-31 09:38] VITALS: BMI 27.9
--- NOTE | 2022-10-31 09:38 | W.ANESPRE ---
General Info Date of Service Date Performed: 10/31/22 Height: 5 ft 6 in Weight: 78.5 kg Body Mass Index (BMI): 27.9 Surgical Procedure: Operation Date: 10/31/22 10:40 Proposed Procedure Side Surgeon p Cataract Extraction with IOL Implant Left Virgilio Chavez MD Meds Allergies and Home Medications Allergies Allergy/AdvReac Type Severity Reaction Status Date / Time aspirin Allergy Verified 10/31/22 09:07 lisinopril Allergy Verified 10/31/22 09:07 povidone-iodine Allergy Verified 10/31/22 09:07 [From Betadine] soap [From Betadine] Allergy Verified 10/31/22 09:07 Home Medication Medication Instructions Recorded acetaminophen 325 mg capsule 325 mg PO Q6H PRN 06/12/20 albuterol sulfate 90 mcg/actuation 2 puff inhalation Q4H PRN 06/12/20 aerosol inhaler diphenhydramine HCl 25 mg capsule 25 mg PO TID PRN 06/12/20 (Allergy (diphenhydramine)) fluticasone propionate 230 1 puff inhalation BID 06/12/20 mcg-salmeterol 21 mcg/actuation HFA inhaler ibuprofen 600 mg tablet 600 mg PO Q6H PRN 06/12/20 lorazepam 0.5 mg tablet 0.5 mg PO Q6H PRN 06/12/20 melatonin 5 mg tablet 20 mg PO HS PRN 06/12/20 omeprazole 20 mg capsule,delayed 20 mg PO BID 06/12/20 release albuterol sulfate 1.25 mg/3 mL 1.25 mg inhalation TID PRN 10/15/22 solution for nebulization diphenoxylate-atropine 2.5 1 tab PO TID PRN 10/15/22 mg-0.025 mg tablet (Lomotil) gabapentin 600 mg tablet 600 mg PO TID 10/15/22 metoprolol succinate 25 mg 50 mg PO DAILY 10/15/22 tablet,extended release 24 hr oxycodone 10 mg tablet 10 mg PO TID 10/15/22 Current Visit Medications: Current Medications Generic Name Dose Route Start Last Admin Trade Name Freq PRN Reason Stop Dose Admin Acetaminophen 1,000 mg 10/31/22 06:00 Acetaminophen 500 Mg Tab PO 11/30/22 05:59 Q4H PRN PRN Balanced Salt Solution 500 ml 10/31/22 06:00 Balanced Salt Soln.-Plus 500 Ml Bag OP 11/30/22 05:59 DIRECTED KELLEE Miscellaneous Medication 0 ml 10/31/22 06:00 Prednisolone 1%, Moxifloxacin 0.5%, Nepafenac 0.1% 5ml Btl OS 11/30/22 05:59 DIRECTED KELLEE Miscellaneous Medication 0 ml 10/31/22 06:00 10/31/22 09:34 Tropicam./Phenyleph. (1/2.5%) 5 Ml Btl OS 11/30/22 05:59 1 drp DIRECTED KELLEE Administration Tetracaine HCl 0 ml 10/31/22 06:00 Tetracaine 0.5% 4 Ml Btl OS 11/30/22 05:59 DIRECTED KELLEE PFSH Active Problems Active Problems: Problem Status Onset Code Posterior subcapsular age-related cataract of left eye H25.042 Nuclear age-related cataract, left eye H25.12 Posterior subcapsular age-related cataract, right eye H25.041 Nuclear age-related cataract, right eye H25.11 Hypertension I10 FIGO stage II endometrial cancer C54.1 Obesity E66.9 GERD (gastroesophageal reflux disease) K21.9 Medical History Medical History Acute asthma Acute urinary tract infection Chronic pain Closed fracture of sacrum Cobalamin deficiency Diarrhea Dysphagia Edema of lower extremity Endometrial carcinoma Malignant neoplasm of endometrium of corpus uteri Neuropathy Thyroid nodule Vaginal bleeding Surgical History Surgical History Abdominal adhesions History of appendectomy 1986 History of dental surgery History of hysterectomy 01/03/20 laparoscopic Hx of cholecystectomy Tobacco Smoking/Tobacco Use Status: Current every day Tobacco Type: cigarettes Smoking cigarettes per day: 10 Alcohol Alcohol Intake: current Alcohol intake frequency: a few times a week Alcohol type: wine Substance Use Substance use: Never Substance use type: does not use Vital Signs and Lab Results Vital Signs Most Recent Vital Signs in EMR: Most Recent Vital Signs Temp Pulse Resp BP Pulse Ox 36.5 C 74 16 141/53 H 95 10/31/22 09:21 10/31/22 09:21 10/31/22 09:21 10/31/22 09:21 10/31/22 09:21 Lab Results Blood Type / Crossmatch: No Data to Display Complete Blood Count: No Data to Display Complete Metabolic Panel: No Data to Display Liver Function Panel: No Data to Display Coagulation Panel: No Data to Display Cardiac Panel: No Data to Display Arterial Blood Gas: No Data to Display Venous Blood Gas: No Data to Display Pancreas Panel: No Data to Display Thyroid Panel: No Data to Display Infectious Disease: No Data to Display Blood Cultures: No Data to Display Toxicology Panel: No Data to Display Anesthesia Assessment and Plan Anesthesia History Personal History: No History of Anesthesia Complications Family History: No Family History of Anesthesia Complications Exercise Tolerance Exercise Tolerance: Metabolic Equivalents>4 Pertinent Negatives Pertinent Negatives: No Major Cardiovascular Symptoms or Complaints and No Major Pulmonary Symptoms or Complaints Cardiac & Pulmonary Exam Cardiac Exam: Normal S1/S2 Heart Sounds Pulmonary Exam: Clear Bilateral Breath Sounds Implantable Cardiac Device Does patient have a Pacemaker or an ICD?: No Airway Exam Known Difficult Airway: No Mallampati Class: 2 Mouth Opening: Narrow (< 3cm) Thyromental Distance: Greater than 3 cm Neck Range of Motion: Full ROM Neck Circumference: Normal Teeth Condition: Normal Dentition ASA Classification ASA Score: ASA 2 Emergency Case?: No NPO Status NPO Status: NPO Clears >2 hours, Solids >8 hours Anesthesia Plan Resuscitation Status: Full Code Anesthesia Technique: MAC Anesthesia Airway Planned: Natural Airway Monitors Used: Standard Monitors
[2022-10-31] MEDS: Tetracaine 0.5% 4 ML BTL OS (10:21)
[2022-10-31] MEDS: Povidone-Iodine Ophth 30 ML BTL (10:21)
[2022-10-31] MEDS: Duovisc Viscoelastic System EACH 1 EACH (10:27)
[2022-10-31] MEDS: Balanced Salt Soln.-PLUS 500 ML BAG OP (10:27)
[2022-10-31] MEDS: Phenylephrine/Lidocaine (15/10) MG/ML 1 ML VIAL (10:28)
[2022-10-31] MEDS: Lidocaine 1% Pres-Free 5 ML VIAL (10:28)
[2022-10-31 10:50] VITALS: BP 116/84; PULSE 68; RESP 16; TEMP 36.8; O2SAT 96
--- NOTE | 2022-10-31 10:50 | W.PM.DSUDISC ---
Date of service: 10/31/22 Time of Service: 10:50 Discharge Plan Disposition Patient Disposition: Home Discharge Details Attending Provider: Virgilio Chavez Primary Care Provider: Lucian Pleitez Home Meds and New Rx's Prescriptions: No Action acetaminophen 325 mg capsule 325 mg PO Q6H PRN albuterol sulfate 90 mcg/actuation HFA aerosol inhaler 2 puff inhalation Q4H PRN diphenhydramine HCl [Allergy (diphenhydramine)] 25 mg capsule 25 mg PO TID PRN fluticasone propion-salmeterol 230-21 mcg/actuation HFA aerosol inhaler 1 puff inhalation BID ibuprofen 600 mg tablet 600 mg PO Q6H PRN lorazepam 0.5 mg tablet 0.5 mg PO Q6H PRN melatonin 5 mg tablet 20 mg PO HS PRN omeprazole 20 mg capsule,delayed release(DR/EC) 20 mg PO BID gabapentin 600 mg Tablet 600 mg PO TID albuterol sulfate 1.25 mg/3 mL Solution For Nebulization 1.25 mg inhalation TID PRN diphenoxylate-atropine [Lomotil] 2.5-0.025 mg Tablet 1 tab PO TID PRN metoprolol succinate 25 mg Tablet Extended Release 24 Hr 50 mg PO DAILY oxycodone 10 mg Tablet 10 mg PO TID Discharge Instructions Stand Alone Forms: Post-op Topical Cataract, Jony Ganey (DSU) Discharge Orders Discharge Orders: Discharge Order (Routine); Ordered 10/31/22 Ordered By: Virgilio Chavez DS: Diagnosis Discharge Diagnosis (1) Nuclear age-related cataract, left eye: Status: Resolved (2) Posterior subcapsular age-related cataract of left eye: Status: Resolved
--- NOTE | 2022-10-31 10:51 | ROE_ITS ---
Date of service: 10/31/22 Time of Service: 10:51 Operative Note Operative Note DATE OF PROCEDURE: 10/31/22 PRE-OP DIAGNOSIS: Nuclear/posterior subcapsular cataract, left eye POST-OP DIAGNOSIS: same PROCEDURE: Cataract extraction using phacoemulsification with intraocular lens implant, left eye SURGEON: Virgilio Chavez ANESTHESIA TYPE: Local By Surgeon and MAC Refer to Anesthesia Record PATHOLOGY: none sent COMPLICATIONS: None Patient was transported to: same day Patient's condition: stable Implants: Bravo Clareon [id number] Indications: Progressive decreased vision due to cataract, left eye Procedure Description: CATARACT SURGERY OPERATIVE REPORT PREOPERATIVE DIAGNOSIS: Nuclear/posterior subcapsular cataract, left eye POSTOPERATIVE DIAGNOSIS: Same OPERATION: Cataract extraction using phacoemulsification with posterior chamber intraocular lens implant, left eye. IOL: IOL Scientific Specialist/Model: Bravo Clareon [id number] IOL Power: + 19.5 diopters IOL Serial Number: [id number] Optic Diameter: 6.0mm Haptic/Overall Diameter: 13.0mm PHACO INFO: BravoIntelaurion Vision System with OZil and Active Fluidics Cumulative Dispersed Energy (CDE): 15.15 seconds SURGEON: Virgilio Chavez MD, ALAINA ANESTHESIA: Monitored Anesthesia Care (MAC), with local sub-tenon's anesthetic infiltration COMPLICATIONS: None SPECIMENS: None INDICATIONS FOR PROCEDURE: The patient is a 72-year-old lady with history of diminished visual acuity in both eyes secondary to the development of bilateral nuclear/posterior subcapsular cataract. She is already undergone cataract surgery in the right eye and is doing well postoperatively. She now presents for cataract surgery in the left eye. See office notes for detailed information. PROCEDURE: The correct surgical eye was identified and marked as the left eye and the pupil was dilated in the preoperative area using mydriatics and cycloplegics. The dilated pupil size was 8.0 mm. Oral sedation was administered in the form of an Imprimis MKO Melt (midazolam 3mg/ketamine 25mg/ondansetron 2mg). The patient was brought to the operating room where cardiopulmonary monitoring was instituted and surgical time-out was performed, confirming the correct operative eye and IOL power. Topical anesthesia was administered and ophthalmic povidone-iodine 5% was instilled into the conjunctival fornices. The nimco-ocular area was prepped with Betadine 10% solution and draped in the usual sterile fashion for intraocular surgery, including an aperture drape. A Tegaderm transparent film dressing was cut in half and used to cover the lashes and lid margins. Care was taken to sequester the lashes and lid margins under the Tegaderm dressing. A lid speculum was placed between the lids of the operative eye and the Bravo LuxOR Revalia operating microscope was maneuvered into position. Brennan scissors were then used to make a conjunctival buttonhole approximately 6mm posterior to the limbus in the inferonasal quadrant. Blunt dissection was carried out to expose bare sclera, and a blunt-tipped sub-tenon?s anesthesia cannula was introduced and passed posteriorly along the globe where non- preserved plain lidocaine was injected into posterior sub-Tenon?s space. A sideport knife was used to make a paracentesis port. Intraocular phenylephrine/lidocaine was injected into the anterior chamber. The anterior chamber was then filled with viscoelastic. A keratome knife was used construct a two-plane clear corneal tunnel extending 2.0mm into clear cornea. A flap was raised on the anterior capsule and capsulorhexis forceps were used to complete a continuous curvilinear capsulorhexis of 5.7 mm. Balanced salt solution was then used to perform cortical cleaving hydrodissection and nuclear hydrodelineation until the lens could be freely rotated within the capsular bag. The lens nucleus was then disassembled and removed within the capsular bag and iris plane using phacoemulsification. Residual cortical material was removed using the irrigation/aspiration handpiec e. The posterior capsule was carefully polished to remove as much residual lens epithelial cells as safely possible. The capsular bag was then inflated and the anterior chamber deepened with viscoelastic. The lens implant described above was inserted into the capsular bag using the Bravo Autonome Injector. A Kuglen hook was used to dial the IOL into position. Residual viscoelastic was then removed first from posterior to the IOL, then from the anterior chamber using the I/A handpiece. The lens implant was noted to center nicely within the capsular bag. The incisions were stromally hydrated, and the anterior chamber was reformed using BSS. Then 0.5cc of moxifloxacin 1.0mg/ml were injected into the capsular bag and anterior chamber. The incisions were checked with a Weck spear and found to be secure. Several drops of ophthalmic povidone-iodine 5% were then applied to the eye followed by two drops of Imprimis combination prednisolone/moxifloxacin/nepafenac solution. The drapes were removed and a clear plastic protective eye shield was placed over the eye. The patient was then returned to Same Day Surgery in stable condition.
--- NOTE | 2022-10-31 11:01 | W.ANESPOSTOP ---
Postoperative Evaluation Date, Time and Location Date Performed: 10/31/22 Time Performed: 10:54 Patient Location: Day Surgery Unit Vital Signs Most Recent Imported Vital Signs: Most Recent Vital Signs Temp Pulse Resp BP Pulse Ox 36.8 C 68 16 116/84 96 10/31/22 10:50 10/31/22 10:50 10/31/22 10:50 10/31/22 10:50 10/31/22 10:50 Pain Score Most Recent Pain Score: Most Recent Pain Score Pain Level 0 10/31/22 10:50 Assessment Mental Status: Awake (Alert & Oriented to Patient Baseline) Airway and Respiratory Function: Patent airway with normal (patient baseline) respiratory exam Cardiovascular Function: Hemodynamically Stable Hydration Status: Adequately Hydrated Nausea & Vomiting: No Nausea or Vomiting Pain: Pt. Denies Any Pain Peripheral Nerve Block: Patient did not receive a nerve block
[2022-10-31 11:15] VITALS: BP 133/49; PULSE 68; RESP 18; TEMP 37; O2SAT 95
== END 2022-10-31 11:20 | disposition home or self-care (01) ==
LOC: SUR 09:00
PROVIDERS: PCP Family Medicine; Visit Provider Ophthalmology
PROC: (CPT 66984; principal; 2022-10-31 10:30)
DX: H25.12 Age-related nuclear cataract, left eye (principal); H25.042 Posterior subcapsular polar age-related cataract, left eye; I10 Essential (primary) hypertension; K21.9 Gastro-esophageal reflux disease without esophagitis; E66.9 Obesity, unspecified
CPT/HCPCS: 66984; V2632